=== PATIENT | male | born 1940 | race Caucasian/White ===

== ENCOUNTER 2022-05-15 08:12 | Oncology outpatient (recurring) (ONCR) | payer OTHER, SELFPAY | END 2022-05-31 23:59 | disposition home or self-care (01) | PROVIDERS: PCP Family Medicine; Visit Provider Internal Medicine Hematology & Oncology | DX: Z08 Encounter for follow-up examination after completed treatment for malignant neoplasm (principal); Z85.89 Personal history of malignant neoplasm of other organs and systems; Z90.09 Acquired absence of other part of head and neck; R59.0 Localized enlarged lymph nodes; Z92.21 Personal history of antineoplastic chemotherapy; Z92.3 Personal history of irradiation; Z87.891 Personal history of nicotine dependence | CPT/HCPCS: 99204 ==

== ENCOUNTER 2022-06-04 07:19 | Outpatient (CLI) | payer OTHER, SELFPAY ==
--- NOTE | 2022-06-04 07:30 | CT_ITS ---
WS: [id number] CT NECK TECHNIQUE: Contrast-enhanced CT of the neck with coronal and sagittal reformatted images. CLINICAL INFORMATION: HISTORY OF TONGUE CANCER COMPARISON: PET CT August 28, [address] March 28, 2019 2T DLP: 173.[address] scans at [facility] use at least one of these dose optimization techniques: automated e xposure control; mA and/or kV adjustment per patient size (includes targeted exams where dose is matc hed to clinical indication); or iterative reconstruction. FINDINGS: Asymmetry involving the RIGHT piriform sinus with mild diffuse supraglottic edema compatibl e with treatment-related changes. Mild treatment-related changes in the soft tissues of the anterior neck. No evidence of enhancing or supraglottic soft tissue mass or lesion. Subglottic airway is paten t. Tongue base appears normal. Normal parapharyngeal fat. Normal submandibular glands. Parotid glands ar e normal. Normal thyroid gland.No cervical lymphadenopathy. Lung apices are well aerated. Partially visualized retention cysts or polyps in the maxillary sinuses. Mastoid air cells are well a erated. Normal posterior nasopharynx. Normal parapharyngeal fat. Lung apices are well aerated. CT/CT neck w con* [id number] IMPRESSION: 1. Mild diffuse supraglottic and glottic edema due to treatment-related change s. 2. Slight asymmetry involving the RIGHT piriform sinus and RIGHT pharyngeal wa ll likely due to treatment-related changes. No enhancing mass or lesion in this location. 3. No cervical lymphadenopathy. 4. Treatment-related changes anterior soft tissues of the neck with mild soft tissue induration.
[2022-06-04 07:51] LABS: Blood Urea Nitrogen 24 mg/dL (8-23)
[2022-06-04] MEDS: iohexol 350 mg/mL 100 mL Btl IV (08:02)
== END 2022-06-04 07:20 | disposition home or self-care (01) ==
PROVIDERS: PCP Family Medicine; Visit Provider Family Medicine
DX: Z85.810 Personal history of malignant neoplasm of tongue (principal)
CPT/HCPCS: 70491; 82565; 84520; Q9967

== ENCOUNTER → 2022-07-01 10:39 | Outpatient (BNVA) | payer OTHER, SELFPAY | PROVIDERS: PCP Family Medicine; Visit Provider Internal Medicine Cardiovascular Disease | DX: I25.10 Atherosclerotic heart disease of native coronary artery without angina pectoris (principal); E11.9 Type 2 diabetes mellitus without complications; I10 Essential (primary) hypertension; Z85.89 Personal history of malignant neoplasm of other organs and systems; Z87.891 Personal history of nicotine dependence; Z79.84 Long term (current) use of oral hypoglycemic drugs | CPT/HCPCS: 99204 ==

== ENCOUNTER → 2023-02-11 13:45 | Outpatient (BNVA) | payer OTHER, SELFPAY | PROVIDERS: PCP Family Medicine; Visit Provider Nurse Practitioner Family | DX: I25.10 Atherosclerotic heart disease of native coronary artery without angina pectoris (principal); I10 Essential (primary) hypertension; Z87.891 Personal history of nicotine dependence; Z79.82 Long term (current) use of aspirin | CPT/HCPCS: 99213 ==

== ENCOUNTER → 2023-02-13 14:18 | Outpatient (BNVA) | payer OTHER, SELFPAY | PROVIDERS: PCP Family Medicine; Visit Provider Dermatology | DX: L82.1 Other seborrheic keratosis (principal); L57.0 Actinic keratosis; L81.4 Other melanin hyperpigmentation; L57.8 Other skin changes due to chronic exposure to nonionizing radiation; D22.5 Melanocytic nevi of trunk | CPT/HCPCS: 17000; 99204 ==

== ENCOUNTER 2024-11-22 07:45 | Outpatient (CLI) | payer OTHER, SELFPAY ==
--- NOTE | 2024-11-22 07:53 | CTR_ITS ---
PROCEDURE INFORMATION: Exam: CT Neck With Contrast Exam date and time: 11/22/2024 8:44 AM Age: 84 years old Clinical indication: Dysphagia / difficulty swallowing; Prior surgery; Surgery date: 6+ months; HX of throat cancer; Additional info: Dysphagia, stat TECHNIQUE: Imaging protocol: Computed tomography of the neck with contrast. Radiation optimization: All CT scans at this facility use at least one of these dose optimization techniques: automated exposure control; mA and/or kV adjustment per patient size (includes targeted exams where dose is matched to clinical indication); or iterative reconstruction. Contrast material: OMNI 350; Contrast volume: 100 ml; Contrast route: INTRAVENOUS (IV); COMPARISON: CT neck w con* [id number] 06/04/2022 7:52 AM RADIATION DOSE METRICS: Total DLP (mGy-cm): 173.78 FINDINGS: Paranasal sinuses: Mucous retention cysts in bilateral maxillary sinuses. No fluid levels. Salivary glands: Normal. Glands are normal in size. Teeth: Patient is edentulous. Pharynx: Mild asymmetric soft tissue prominence along the right piriform sinus appears improved from the prior exam from 06/04/2022 and is likely related to posttreatment changes. Larynx: Unremarkable. Epiglottis is normal. Thyroid: Normal. No enlarged or calcified nodules. Trachea: Visualized trachea is unremarkable. Lungs: Unremarkable as visualized. Lymph nodes: Unremarkable. No lymphadenopathy. Vasculature: Mild atherosclerotic plaque at bilateral carotid bifurcations without hemodynamically significant stenosis. 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 Bones/joints: Degenerative changes of the visualized spine. No acute fracture. Soft tissues: Unremarkable. No significant soft tissue swelling. CT/CT neck w con* [id number] IMPRESSION: No acute findings.
[2024-11-22 08:45] LABS: Blood Urea Nitrogen 19 mg/dL (8-23)
--- NOTE | 2024-11-22 08:50 | FL_ITS ---
WS: [id number] Exam: FL barium swallow [id number] Date/Time of Exam: 11/22/2024 8:51 AM Reason For Exam: [id number] Fluoroscopy time: 2min [id number] minutes # of spot films: 4 There is significant stricture of the cervical esophagus at about the level of C7 with about 75% luminal narrowing. The remaining esophagus was patent with normal motility. No hiatal hernia or gastroesophageal reflux noted. The patient experienced 1 episode of mild aspiration during the exam. FL/FL barium swallow [id number] IMPRESSION: 1. 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 This could be benign or malignant stricture. Endoscopic evaluation is indicate d for further work-up. 2. The remaining esophagus was patent with normal motility. No reflux or hiatal hernia noted. 3. The patient experienced 1 episode of aspiration during the exam. This was mi ld. Modified barium swallow test could be considered for more detailed evaluati on.
[2024-11-22] MEDS: iohexol 350 mg/mL 500 mL Btl (per mL) IV (08:52)
== END 2024-11-22 07:46 | disposition home or self-care (01) ==
LOC: RAD 07:47
PROVIDERS: PCP Family Medicine; Visit Provider Specialist
DX: R13.10 Dysphagia, unspecified (principal); K22.2 Esophageal obstruction
CPT/HCPCS: 70491; 74220; 82565; 84520

== ENCOUNTER → 2024-12-22 08:11 | Outpatient (BNVA) | payer OTHER, SELFPAY | PROVIDERS: PCP Family Medicine; Visit Provider Surgery | DX: R13.10 Dysphagia, unspecified (principal) | CPT/HCPCS: 99203 ==

== ENCOUNTER → 2024-12-31 10:56 | Outpatient (BNVA) | payer OTHER, SELFPAY | PROVIDERS: PCP Family Medicine; Visit Provider Dermatology | DX: L82.1 Other seborrheic keratosis (principal) | CPT/HCPCS: 17000; 99213 ==